=== PATIENT | male | born 1980 | race Caucasian/White ===

== ENCOUNTER 2024-10-18 22:53 | Emergency (ER) | payer BC ==
[~2024-10-18] VITALS: Ht 170.2 cm; Wt 79.4 kg
[2024-10-18 23:30] LABS: BASOPHILS # (AUTO) 0.1 K/UL (0.0-0.2); BASOPHILS % (AUTO) 0.4 % (0.0-2.0); EOSINOPHILS # (AUTO) 0.1 K/uL (0.0-0.7); EOSINOPHILS % (AUTO) 0.8 % (0.0-7.0); HEMATOCRIT 43.4 % (36.7-47.1); HEMOGLOBIN 15.1 g/dL (12.5-16.3); LYMPHOCYTES # (AUTO) 1.5 K/uL (0.8-4.8); LYMPHOCYTES % (AUTO) 12.4 % (20.5-51.5); MEAN CORPUSCULAR HEMOGLOBIN 28.7 uug (23.8-33.4); MEAN CORPUSCULAR HGB CONC 35 g/dL (32.5-36.3); MEAN CORPUSCULAR VOLUME 82.2 fL (73.0-96.2); MONOCYTES # (AUTO) 0.3 K/uL (0.1-1.30); MONOCYTES % (AUTO) 2.9 % (0.0-11.0); NEUTROPHILS # (AUTO) 9.8 K/uL (1.8-8.9); NEUTROPHILS % (AUTO) 83.5 % (38.5-71.5); PLATELET COUNT (AUTO) 219 K/uL (152-348); RED BLOOD CELL COUNT(AUTO) 5.29 MIL/uL (4.06-5.63); WHITE BLOOD COUNT (AUTO) 11.7 K/uL (3.6-10.2)
[2024-10-18] MEDS ORDERED: METOCLOPRAMIDE HCL 10 MG TABLET ONE (23:30)
[2024-10-18] MEDS ORDERED: diphenhydrAMINE 25 MG CAP PO ONE (23:30)
[2024-10-18 23:31] LABS: DIFFERENTIAL COMMENT 1
[2024-10-18] MEDS: diphenhydrAMINE 25 MG CAP PO ONE (23:41)
[2024-10-18] MEDS: METOCLOPRAMIDE HCL 10 MG TABLET PO ONE (23:41)
[2024-10-18] MEDS ORDERED: KETOROLAC TROMETHAMINE 30 MG INJ ONE (23:43)
[2024-10-18] MEDS: KETOROLAC TROMETHAMINE 30 MG INJ IVP ONE (23:47)
[2024-10-18 23:49] LABS: CALCIUM 9.4 mg/dL (8.5-10.1); CREATININE 1.3 mg/dL (0.6-1.3); POTASSIUM 3.9 mmol/L (3.5-5.1)
[2024-10-19 00:04] LABS: ALBUMIN 4.3 g/dL (3.4-5.0); BILIRUBIN,TOTAL 0.4 mg/dL (0.2-1.0); TOTAL PROTEIN, SERUM 7.6 g/dL (6.4-8.2)
[2024-10-19] MEDS ORDERED: DICY20TA11 PO (00:39)
[2024-10-19 00:48] VITALS: BP 145/90; O2SAT 100
== END 2024-10-19 00:48 | disposition home or self-care (01) ==
LOC: ER 22:56
DX: R10.9 Unspecified abdominal pain (principal); R11.10 Vomiting, unspecified
CPT/HCPCS: 99284; 96374; 80053; 83690; 85025; 36415; 74018; J1885; Q0163; A4606; A4663; J8597